=== PATIENT | female | born 1985 | race Caucasian/White ===

== ENCOUNTER 2017-09-03 18:02 | Emergency (ER) | payer OTHER ==
[~2017-09-03] VITALS: Ht 170.2 cm; Wt 90.4 kg
[2017-09-03] MEDS ORDERED: FAMOTIDINE 20 MG/2 ML IVP ONE (18:30)
[2017-09-03] MEDS ORDERED: SODIUM CHLORIDE 0.9% 1,000ML IVBOLUS ONE (18:30)
[2017-09-03] MEDS ORDERED: ONDANSETRON 2MG/ML, 2ML IVPush ONE (18:30)
[2017-09-03] MEDS ORDERED: FAMOTIDINE 20 MG/2 ML ONE (18:30)
[2017-09-03] MEDS ORDERED: ONDANSETRON 2MG/ML, 2ML ONE (18:31)
[2017-09-03 18:49] LABS: BASOPHILS # (AUTO) 0.04 x10^3/uL (0-0.1); BASOPHILS % (AUTO) 1 % (0-1); EOSINOPHILS # (AUTO) 0.02 x10^3/uL (0-0.4); EOSINOPHILS % (AUTO) 0 % (1-7); LYMPHOCYTES # (AUTO) 1.59 x10^3/uL (1-3.4); LYMPHOCYTES % (AUTO) 16 % (22-44); MD NO; MEAN CORPUSCULAR HEMOGLOBIN 29.2 pg (27.0-34.8); MEAN CORPUSCULAR HGB CONC 33.7 g/dL (32.4-35.8); MEAN CORPUSCULAR VOLUME 86.8 fL (80-100); MEAN PLATELET VOLUME 11.4 fL (7.4-10.4); MONOCYTES # (AUTO) 0.67 x10^3/uL (0.2-0.8); MONOCYTES % (AUTO) 7 % (2-9); NEUTROPHILS # (AUTO) 7.42 x10^3/uL (1.8-6.8); NEUTROPHILS % (AUTO) 76 % (42-75); PLATELET COUNT 220 x10^3/uL (130-400); RED CELL DISTRIBUTION WIDTH 13.7 % (9.6-15.2)
[2017-09-03 19:01] LABS: ALANINE AMINOTRANSFERASE 27 U/L (12-78); ALBUMIN 4.4 g/dL (3.4-5.0); ANION GAP 10 mmol/L (5-15); CALCIUM 9.3 mg/dL (8.5-10.1); CHLORIDE 109 mmol/L (98-107); CREATININE 0.89 mg/dL (0.55-1.02)
[2017-09-03 19:06] LABS: ALKALINE PHOSPHATASE 57 U/L (45-117); BILIRUBIN,TOTAL 0.6 mg/dL (0.2-1.0); TOTAL PROTEIN 7.9 g/dL (6.4-8.2)
[2017-09-03] MEDS ORDERED: LORazepam 2 MG/ML, 1ML ONE (19:43)
[2017-09-03] MEDS ORDERED: LORazepam 2 MG/ML, 1ML IVPush ONE (20:00)
[2017-09-03 20:36] VITALS: BP 105/62
== END 2017-09-03 20:37 | disposition home or self-care (01) ==
LOC: ED 20:31
DX: F41.1 Generalized anxiety disorder (principal)
CPT/HCPCS: 36415; 71045; 80053; 83690; 84703; 85025; 93005; 96361; 96374; 96375; 99285; J2060; J2405; J7030; S0028

== ENCOUNTER 2017-09-10 18:23 | Emergency (ER) | payer OTHER ==
[~2017-09-10] VITALS: Ht 170.2 cm; Wt 90.1 kg
[2017-09-10 18:24] VITALS: BP 145/78
[2017-09-10] MEDS ORDERED: LAMO25TA5 PO (18:34)
[2017-09-10] MEDS ORDERED: QUET300T5 PO (18:34)
[2017-09-10] MEDS ORDERED: SERT100T PO (18:34)
[2017-09-10] MEDS ORDERED: LAMO100T5 PO (18:34)
== END 2017-09-10 19:48 | disposition home or self-care (01) ==
LOC: ED 19:44
DX: Z76.0 Encounter for issue of repeat prescription (principal); F31.9 Bipolar disorder, unspecified
CPT/HCPCS: 99283

== ENCOUNTER 2018-04-01 17:23 | Outpatient (CLI) | payer OTHER ==
[~2018-04-01] VITALS: Ht 170.2 cm; Wt 111.4 kg
[~2018-04-01 17:23] MED LIST: LAMO100T5 PO; LAMO25TA5 PO; QUET300T5 PO; SERT100T PO
[2018-04-01 18:20] VITALS: BP 121/57
[2018-04-01 18:39] LABS: BASOPHILS # (AUTO) 0.03 x10^3/uL (0-0.1); BASOPHILS % (AUTO) 0 % (0-1); EOSINOPHILS % (AUTO) 1 % (1-7); LYMPHOCYTES % (AUTO) 14 % (22-44); MD NO; MEAN CORPUSCULAR HEMOGLOBIN 30.9 pg (27.0-34.8); MEAN CORPUSCULAR HGB CONC 34.2 g/dL (32.4-35.8); MEAN CORPUSCULAR VOLUME 90.1 fL (80-100); MEAN PLATELET VOLUME 9.9 fL (7.4-10.4); MONOCYTES # (AUTO) 0.78 x10^3/uL (0.2-0.8); MONOCYTES % (AUTO) 8 % (2-9); NEUTROPHILS # (AUTO) 7.59 x10^3/uL (1.8-6.8); NEUTROPHILS % (AUTO) 77 % (42-75); PLATELET COUNT 161 x10^3/uL (130-400); RED BLOOD COUNT 3.66 x10^6/uL (3.82-5.3); RED CELL DISTRIBUTION WIDTH 13.2 % (9.6-15.2)
[2018-04-01 18:41] LABS: MICROSCOPIC AUTO
[2018-04-01 18:50] LABS: AMPHETAMINE SCREEN, URINE Negative (Negative); BARBITURATE SCREEN, URINE Negative (Negative); BENZODIAZEPINE SCREEN, URINE Negative (Negative); CANNABINOID SCREEN, URINE Negative (Negative); COCAINE SCREEN, URINE Negative (Negative); METHADONE SCREEN, URINE Negative (Negative); OPIATE SCREEN, URINE Negative (Negative)
[2018-04-01] MEDS ORDERED: HYDR50CA PO (19:11)
[2018-04-01] MEDS ORDERED: PREN1TAB60 PO (19:11)
[2018-04-01] MEDS ORDERED: RHOGAM FROM BLOOD BANK 1 NOTE EA IM/IV ONE (20:30)
== END 2018-04-01 22:54 | disposition home or self-care (01) ==
LOC: LDOP 17:23
PROVIDERS: ATTEND Obstetrics & Gynecology
DX: O09.33 Supervision of pregnancy with insufficient antenatal care, third trimester (principal); Z3A.35 35 weeks gestation of pregnancy
CPT/HCPCS: 36415; 59025; 76805; 80307; 81001; 85025; 86592; 86762; 86850; 86900; 87081; 87086; 87340; 87491; 87591; 87806; 87808; 96372; 99211; J2790; G0463; G0475

== ENCOUNTER 2018-05-09 09:41 | Inpatient (IN) | payer OTHER ==
[~2018-05-09] VITALS: Ht 170.2 cm; Wt 115.0 kg
[~2018-05-09 09:41] MED LIST changes: +HYDR50CA PO; +PREN1TAB60 PO
[2018-05-09] MEDS ORDERED: LACTATED RINGERS 1,000 ML IV SCH ×2 (09:44→10:00)
[2018-05-09] MEDS ORDERED: OXYTOCIN 30U/ 0.9% NaCL 500ML 500 ML IV SCH (09:44)
[2018-05-09] MEDS ORDERED: ONDANSETRON 2MG/ML, 2ML IVPush ONE (10:00)
[2018-05-09] MEDS ORDERED: LACTATED RINGERS 1,000 ML IVBOLUS ONE (10:00)
[2018-05-09] MEDS ORDERED: METOCLOPRAMIDE 5 MG/ML, 2ML IV ONE (10:00)
[2018-05-09] MEDS ORDERED: SODIUM CITRATE/CITRIC ACID 30 ML UDC PO ONE (10:00)
[2018-05-09] MEDS ORDERED: CALCIUM CARBONATE 500 MG TAB.CHEW PO PRN ×2 (10:00→10:30)
[2018-05-09] MEDS ORDERED: CEFAZOLIN PMX 1GM/50ML 50 ML IVPB ONE (10:00)
[2018-05-09 10:08] LABS: BASOPHILS # (AUTO) 0.02 x10^3/uL (0-0.1); BASOPHILS % (AUTO) 0 % (0-1); EOSINOPHILS # (AUTO) 0.12 x10^3/uL (0-0.4); EOSINOPHILS % (AUTO) 1 % (1-7); LYMPHOCYTES % (AUTO) 17 % (22-44); MD NO; MEAN CORPUSCULAR HEMOGLOBIN 30.8 pg (27.0-34.8); MEAN CORPUSCULAR VOLUME 90.5 fL (80-100); MEAN PLATELET VOLUME 10.1 fL (7.4-10.4); MONOCYTES % (AUTO) 8 % (2-9); NEUTROPHILS # (AUTO) 7.32 x10^3/uL (1.8-6.8); NEUTROPHILS % (AUTO) 74 % (42-75); PLATELET COUNT 165 x10^3/uL (130-400); RED BLOOD COUNT 3.78 x10^6/uL (3.82-5.3); RED CELL DISTRIBUTION WIDTH 13.6 % (9.6-15.2)
[2018-05-09] MEDS ORDERED: OXYTOCIN 30U/ 0.9% NaCL 500ML 500 ML ONE (10:08)
[2018-05-09] MEDS ORDERED: SODIUM CITRATE/CITRIC ACID 30 ML UDC ONE (10:08)
[2018-05-09] MEDS ORDERED: NEWBORN KIT ONE (10:08)
[2018-05-09] MEDS ORDERED: METOCLOPRAMIDE 5 MG/ML, 2ML ONE (10:08)
[2018-05-09] MEDS: OXYTOCIN 30U/ 0.9% NaCL 500ML 500 ML IV SCH ×2 (10:27→20:27)
[2018-05-09] MEDS: LACTATED RINGERS 1,000 ML IV SCH ×4 (10:27→22:44)
[2018-05-09] MEDS ORDERED: morphine SULFATE/PF 0.5 MG/ML, 10ML ONE (10:27)
[2018-05-09] MEDS ORDERED: PLEASE ENTER HEIGHT AND WEIGHT MC SCH (10:30)
[2018-05-09] MEDS ORDERED: DIPH,PERTUSS(ACELL),TET VAC/PF NC IM-VACC PRN (10:30)
[2018-05-09] MEDS ORDERED: morphine SULFATE 10 MG/ML, 1ML IVPush PRN ×2 (10:30)
[2018-05-09] MEDS ORDERED: ONDANSETRON 2MG/ML, 2ML IV PRN (10:30)
[2018-05-09] MEDS ORDERED: IBUPROFEN 600 MG TABLET PO PRN (10:30)
[2018-05-09] MEDS ORDERED: MEASLES,MUMPS&RUBELLA VACC/PF 0.5 ML SQ-VACC PRN (10:30)
[2018-05-09] MEDS ORDERED: SIMETHICONE 80 MG CHEW TAB PO PRN (10:30)
[2018-05-09] MEDS ORDERED: ACETAMINOPHEN 325 MG TABLET PO PRN ×2 (10:30)
[2018-05-09] MEDS ORDERED: MISOPROSTOL 200 MCG TABLET PR PRN (10:30)
[2018-05-09 10:50] VITALS: BP 156/89
[2018-05-09] MEDS ORDERED: ONDANSETRON 2MG/ML, 2ML ONE (11:38)
[2018-05-09] MEDS ORDERED: OXYTOCIN 10 UNITS/ML, 1ML ONE (11:38)
[2018-05-09] MEDS ORDERED: CEFAZOLIN 1,000 MG ONE (11:38)
[2018-05-09] MEDS ORDERED: WATER-INJECTION,STERILE 10 ML IV ONE (11:38)
[2018-05-09] MEDS ORDERED: PHENYLEPHRINE 10 MG/ML ONE (11:38)
[2018-05-09] MEDS ORDERED: EPHEDRINE 50 MG/ML, 1ML ONE (11:38)
[2018-05-09] MEDS ORDERED: HYDROmorphone 2 MG/ML, 1ML ONE (13:14)
[2018-05-09] MEDS ORDERED: HYDROcodone/APAP 7.5-325MG/15ML UDC ONE (13:14)
[2018-05-09] MEDS ORDERED: HYDROmorphone 2 MG/ML, 1ML IM ONE (13:30)
[2018-05-09] MEDS ORDERED: LABETALOL 100 MG TABLET ONE (13:51)
[2018-05-09] MEDS: LABETALOL 100 MG TABLET PO SCH (13:54)
[2018-05-09] MEDS: SERTRALINE 100MG TABLET PO SCH (13:54)
[2018-05-09] MEDS ORDERED: HYDROcodone/APAP 7.5-325MG/15ML UDC PO ONE (14:00)
[2018-05-09 14:35] VITALS: BP 118/76
[2018-05-09 15:35] VITALS: BP 136/81
[2018-05-09] MEDS: KETOROLAC 30 MG/1 ML IV SCH ×4 (16:30→23:30)
[2018-05-09 19:46] LABS: BASOPHILS # (AUTO) 0.03 x10^3/uL (0-0.1); BASOPHILS % (AUTO) 0 % (0-1); EOSINOPHILS # (AUTO) 0.06 x10^3/uL (0-0.4); EOSINOPHILS % (AUTO) 1 % (1-7); LYMPHOCYTES # (AUTO) 1.19 x10^3/uL (1-3.4); LYMPHOCYTES % (AUTO) 11 % (22-44); MD NO; MEAN CORPUSCULAR HGB CONC 34.4 g/dL (32.4-35.8); MEAN CORPUSCULAR VOLUME 90.1 fL (80-100); MEAN PLATELET VOLUME 9.7 fL (7.4-10.4); MONOCYTES # (AUTO) 0.75 x10^3/uL (0.2-0.8); MONOCYTES % (AUTO) 7 % (2-9); NEUTROPHILS # (AUTO) 9.02 x10^3/uL (1.8-6.8); NEUTROPHILS % (AUTO) 82 % (42-75); PLATELET COUNT 145 x10^3/uL (130-400); RED BLOOD COUNT 3.41 x10^6/uL (3.82-5.3); RED CELL DISTRIBUTION WIDTH 13.8 % (9.6-15.2)
[2018-05-09 20:15] VITALS: BP 120/78
[2018-05-09] MEDS: DOCUSATE 100 MG CAPSULE PO PRN (20:45)
[2018-05-09] MEDS: OXYcodone/APAP 5/325MG TABLET PO PRN (20:45)
[2018-05-09] MEDS: hydrOXyzine 50MG TABLET PO SCH (21:10)
[2018-05-10] VITALS (7 sets, daily range): BP systolic 111–144; BP diastolic 76–91
[2018-05-10] MEDS: OXYcodone/APAP 5/325MG TABLET PO PRN ×5 (01:11→20:45)
[2018-05-10] MEDS: LACTATED RINGERS 1,000 ML IV SCH ×5 (02:27→23:00)
[2018-05-10] MEDS ORDERED: RHOGAM FROM BLOOD BANK 1 NOTE EA IM/IV ONE (05:30)
[2018-05-10] MEDS: LABETALOL 100 MG TABLET PO SCH ×2 (05:54→17:18)
[2018-05-10] MEDS: KETOROLAC 30 MG/1 ML IV SCH ×4 (05:54→23:28)
[2018-05-10] MEDS: OXYTOCIN 30U/ 0.9% NaCL 500ML 500 ML IV SCH ×2 (06:27→16:27)
[2018-05-10] MEDS: DIPHENHYDRAMINE 25 MG CAPSULE PO PRN ×2 (06:27→16:05)
[2018-05-10] MEDS: SERTRALINE 100MG TABLET PO SCH (09:10)
[2018-05-10] MEDS: DOCUSATE 100 MG CAPSULE PO PRN ×2 (09:11→20:46)
[2018-05-10] MEDS: PRENATAL VIT/IRON/FA 1 EACH TABLET PO SCH (09:11)
[2018-05-10] MEDS: hydrOXyzine 50MG TABLET PO SCH (20:46)
[2018-05-11] MEDS: OXYcodone/APAP 5/325MG TABLET PO PRN ×4 (01:10→13:42)
[2018-05-11] MEDS: LACTATED RINGERS 1,000 ML IV SCH ×2 (02:27→07:00)
[2018-05-11] MEDS: OXYTOCIN 30U/ 0.9% NaCL 500ML 500 ML IV SCH (02:27)
[2018-05-11 05:40] VITALS: BP 152/92
[2018-05-11] MEDS: KETOROLAC 30 MG/1 ML IV SCH (05:42)
[2018-05-11] MEDS: LABETALOL 100 MG TABLET PO SCH (05:43)
[2018-05-11 07:52] VITALS: BP 121/78
[2018-05-11] MEDS ORDERED: OXYC-302 PO (08:30)
[2018-05-11] MEDS ORDERED: IBUP-1222 PO (08:30)
[2018-05-11] MEDS: PRENATAL VIT/IRON/FA 1 EACH TABLET PO SCH (09:36)
[2018-05-11] MEDS: SERTRALINE 100MG TABLET PO SCH (09:38)
== END 2018-05-11 17:54 | disposition home or self-care (01) | DRG 785 ==
LOC: LDIP 09:41 → 2NW 14:08
PROVIDERS: ADMIT Obstetrics & Gynecology; ATTEND Obstetrics & Gynecology
PROC: 10D00Z1 Extraction of Products of Conception, Low, Open Approach (ICD-10-PCS; principal; 2018-05-09)
PROC: 0UB70ZZ Excision of Bilateral Fallopian Tubes, Open Approach (ICD-10-PCS; 2018-05-09)
PROC: 30233S1 Transfusion of Nonautologous Globulin into Peripheral Vein, Percutaneous Approach (ICD-10-PCS; 2018-05-10)
DX: O34.211 Maternal care for low transverse scar from previous cesarean delivery (principal); O69.81X0 Labor and delivery complicated by cord around neck, without compression, not applicable or unspecified; Z30.2 Encounter for sterilization; Z37.0 Single live birth; Z3A.40 40 weeks gestation of pregnancy; O13.4 Gestational [pregnancy-induced] hypertension without significant proteinuria, complicating childbirth; O99.344 Other mental disorders complicating childbirth; F32.9 Major depressive disorder, single episode, unspecified; F41.9 Anxiety disorder, unspecified; Z23 Encounter for immunization
CPT/HCPCS: 36415; J2790; 82803; 85025; 85461; 86850; 86900; 88302; 90715; G0378; J0690; J1170; J1885; J2274; J2405; J2370; J2590; J2765; J7120; Q0163

== ENCOUNTER 2019-05-20 18:58 | Emergency (ER) ==
[~2019-05-20] VITALS: Ht 170.2 cm; Wt 84.1 kg
[~2019-05-20 18:58] MED LIST changes: +IBUP-1222 PO; +OXYC-302 PO
--- NOTE | 2019-05-20 20:10 | NUR ---
PT HAS CO OF DYSURIA. PT HAS HX OF UTI. UA SAMPLE COLLECTED
--- NOTE | 2019-05-20 20:54 | NUR ---
PT RESTING, NO NEEDS AT THIS TIME. WAITING FOR UA RESULT
--- NOTE | 2019-05-20 21:01 | NUR ---
REPORT TO MAYANK
[2019-05-20 21:07] LABS: HCG UR SG 1.018 (1.003-1.030)
[2019-05-20 21:16] LABS: CULTURE INDICATED? YES; MICROSCOPIC INDICATED
--- NOTE | 2019-05-20 21:27 | NUR ---
ALL RESULTS ARE BACK AT THIS TIME. CHART UP FOR RECHECK. PT RESTING ON GURNEY. SHARMA.
[2019-05-20 21:29] VITALS: BP 122/69
== END 2019-05-20 22:24 | disposition home or self-care (01) ==
LOC: ED 22:00
DX: A59.01 Trichomonal vulvovaginitis (principal); N30.01 Acute cystitis with hematuria
CPT/HCPCS: 81001; 81025; 87077; 87086; 87186; 99283

== ENCOUNTER 2019-07-07 03:28 | Emergency (ER) | payer OTHER ==
[~2019-07-07] VITALS: Ht 170.2 cm; Wt 80.9 kg
--- NOTE | 2019-07-07 04:26 | NUR ---
Patient presents to ER c/o urinary retention. Patient states she feels like she has to pee a lot but is unable to. Patient has bladder pain. She denies abd pain or cramping. Patient states this has happened before approx 1 month ago. She did not have to get a ospina catheter but was dx with a bladder infection and was given antibiotics. Patient is in obvious discomfort. Respirations even and unlabored.
[2019-07-07 04:28] LABS: HCG UR SG 1.003 (1.003-1.030); MICROSCOPIC AUTO
[2019-07-07 04:32] LABS: CULTURE INDICATED? YES
--- NOTE | 2019-07-07 04:34 | NUR ---
Bladder scan performed with 150 mL residual.
[2019-07-07 04:46] VITALS: BP 147/63
[2019-07-07] MEDS ORDERED: PHENAZOPYRIDINE 200 MG TABLET ONE (05:06)
[2019-07-07] MEDS ORDERED: CEFDINIR 300 MG CAPSULE ONE (05:06)
--- NOTE | 2019-07-07 05:11 | NUR ---
Discharge instructions given. All questions and concerns addressed. Patient ambulatory with a steady gait. Belongings with patient.
[2019-07-07] MEDS ORDERED: PHENAZOPYRIDINE 200 MG TABLET PO ONE (05:30)
[2019-07-07] MEDS ORDERED: CEFDINIR 300 MG CAPSULE PO ONE (05:30)
== END 2019-07-07 05:12 | disposition home or self-care (01) ==
LOC: ED 03:53
DX: N30.01 Acute cystitis with hematuria (principal); Z98.890 Other specified postprocedural states; Z98.51 Tubal ligation status
CPT/HCPCS: 81001; 81025; 87077; 87086; 87186; 99283